=== PATIENT | female | born 1970 | race Two or more races ===

== ENCOUNTER 2017-10-20 06:22 | Day surgery (SDC) | payer OTHER ==
[~2017-10-20] VITALS: Ht 165.1 cm; Wt 59.9 kg
[2017-10-20] VITALS (9 sets, daily range): BP systolic 82–124; BP diastolic 47–88
[2017-10-20] MEDS ORDERED: cefOXitin Sod 1 GM in D5W 55 ML IVPB ONE (07:00)
[2017-10-20] MEDS ORDERED: VITAMIN D1000 UNI1 ORAL (07:15)
[2017-10-20] MEDS ORDERED: LR 1000ml 1,000 ML IVLG SCH (07:40)
--- NOTE | 2017-10-20 07:40 | Anethesia Preoperative Eval ---
Anesthesia Pre-op PMH/ROS General Date of Evaluation: Oct 20, 2017 Anesthesiologist: Kenny ASA Score: ASA 3 Mallampati Score Class I : Soft palate, uvula, fauces, pillars visible Class II: Soft palate, uvula, fauces visible Class III: Soft palate, base of uvula visible Class IV: Only hard plate visible Mallampati Classification: Class II Surgeon: Beata Diagnosis: IUD Surgical Procedure: hysteroscopy, D&C, IUD removal Anesthesia History: none Family History: no anesthesia problems Allergies: Coded Allergies: No Known Allergies (Unverified , 10/20/17) Medications: see eMAR Past Medical History Cardiovascular: Denies: HTN, CAD, [place], valve dz, arrhythmia, other Pulmonary: Denies: asthma, COPD, ARI, other Gastrointestinal/Genitourinary: Denies: GERD, CRI, ESRD, other Neurologic/Psychiatric: Denies: dementia, CVA, depression/anxiety, TIA, other Endocrine: Denies: DM, hypothyroidism, steroids, other HEENT: Denies: cataract (L), cataract (R), glaucoma, [place] (L), [place] (R), other Hematology/Immune: Denies: anemia, DVT, bleeding disorder, other Musculoskeletal/Integumentary: Denies: OA, RA, DJD, DDD, edema, other PSxH Narrative: left oophorectomy, foot sx, lasik Anesthesia Pre-op Phys. Exam Physician Exam Last Vital Signs Date Time Temp Pulse Resp B/P (MAP) Pulse Ox O2 Delivery O2 Flow Rate FiO2 10/20/17 07:15 97.8 64 18 123/78 100 Room Air 97.8 Constitutional: NAD Cardiovascular: RRR Respiratory: CTA Airway Exam Mallampati Score: Class II MO: full ROM: full Teeth: missing, intact, broken Anesthesia Pre-op A/P Labs see chart Urine Test Test 10/20/17 06:35 Urine HCG, Qualitative Negative (NEGATIVE) Risk Assessment & Plan Assessment: ASA I Plan: GA Status Change Before Surgery: No Pre-Antibiotics Drug: Ancef 1g Given Within 1 Hr of Incision: Yes KACIE NAPIER M.D. Oct 20, 2017 07:40
--- NOTE | 2017-10-20 07:41 | 48 Hour Post Anesthesia Eval ---
Post Anesthesia Evaluation Procedure: Hysteroscopy, D&C, IUD removal Date of Evaluation: Oct 20, 2017 Time of Evaluation: 12:10 Blood Pressure Systolic: 111 0: 76 Pulse Rate: 67 Respiratory Rate: 18 Temperature (Fahrenheit): 97.2 O2 Sat by Pulse Oximetry: 99 Airway: patent Nausea: No Vomiting: No Pain Intensity: 0 Hydration Status: adequate Cardiopulmonary Status: at baseline Mental Status/LOC: patient returned to baseline Post-Anesthesia Complications: 0 Follow-up care needed: ready to discharge KACIE NAPIER M.D. Oct 20, 2017 07:41
--- NOTE | 2017-10-20 07:41 | Immediate Post-Op Evaluation ---
Immediate Post-Op Evalulation Immediate Post-Op Evalulation Procedure: Hysteroscopy, D&C, IUD removal Date of Evaluation: Oct 20, 2017 Time of Evaluation: 08:54 IV Fluids: 900 Blood Products: 0 Estimated Blood Loss: min Urinary Output: 0 Blood Pressure Systolic: 82 Blood Pressure Diastolic: 47 Pulse Rate: 54 Respiratory Rate: 17 O2 Sat by Pulse Oximetry: 100 Temperature (Fahrenheit): 97 Pain Score (1-10): 0 Nausea: No Vomiting: No Complications 0 Patient Status: awake, reacts, patent, none Hydration Status: adequate Drug: cefoxitin 1g Given Within 1 Hr of Incision: Yes Time Given: 08:00 KACIE NAPIER M.D. Oct 20, 2017 07:41
[2017-10-20] MEDS ORDERED: Zemuron 50mg/5ml Inj IV ONE (07:42)
[2017-10-20] MEDS ORDERED: Succinylcholine 20mg/ml 10ml vial ONE (07:42)
[2017-10-20] MEDS ORDERED: cefOXitin 1gm Inj ONE ×2 (07:43→07:52)
[2017-10-20] MEDS ORDERED: Labetalol 5mg/ml 20ml vial IV PRN (07:45)
[2017-10-20] MEDS ORDERED: Hydromorphone 0.5mg/0.5ml inj IVP PRN (07:45)
[2017-10-20] MEDS ORDERED: fentaNYL 100 mcg/2 mL IV PRN (07:45)
[2017-10-20] MEDS ORDERED: Ketorolac 30mg Inj IV PRN (07:45)
[2017-10-20] MEDS ORDERED: DiphenhydrAMINE 50mg/ml Inj IVP PRN (07:45)
[2017-10-20] MEDS ORDERED: LORazepam Inj 2mg/ml 1ml IV PRN (07:45)
[2017-10-20] MEDS ORDERED: Midazolam 2mg/2ml Inj IVP PRN (07:45)
[2017-10-20] MEDS ORDERED: Propofol 200mg/20ml IV ONE (07:48)
[2017-10-20] MEDS ORDERED: Lidocaine 1% MPF 10mg/ml 5ml ONE (07:48)
--- NOTE | 2017-10-20 07:52 | Pre-Procedure Note/Attestation ---
Pre-Procedure Note/Attestation Complete Prior to Procedure Planned Procedure: not applicable Procedure Narrative: hysteroscopy, iud removal, fractional curettage Indications for Procedure Pre-Operative Diagnosis: malposition of iud Attestation I attest that I discussed the nature of the procedure; its benefits; risks and complications; and alternatives (and the risks and benefits of such alternatives ), prior to the procedure, with the patient (or the patient's legal professional healthcare representative). I attest that, if there was a reasonable possibility of needing a blood transfusion, the patient (or the patient's legal professional healthcare representative) was given the [facility] standardized written summary, pursuant to the [place] R[place] Blood Safety Act ([place] Health and Safety Code # 1645, as amended). I attest that I re-evaluated the patient just prior to the surgery and that there has been no change in the patient's H&P, except as documented below: VERN SCALES Oct 20, 2017 07:52
[2017-10-20] MEDS ORDERED: NS Irrig 1000ml ONE (08:00)
[2017-10-20] MEDS ORDERED: D5 1/2NS 1,000 ML IV SCH (08:00)
[2017-10-20] MEDS ORDERED: Norco 5mg/325mg tab ORAL PRN (08:00)
[2017-10-20] MEDS ORDERED: LR 1000ml ONE (08:00)
[2017-10-20] MEDS ORDERED: Tylenol #3 tab (300mg/30mg) ORAL PRN (08:00)
[2017-10-20] MEDS ORDERED: Metoclopramide 10mg/2ml Inj IVP PRN (08:00)
[2017-10-20] MEDS ORDERED: Sterile Water Irrig 1000ml IRRIG ONE (08:00)
[2017-10-20] MEDS ORDERED: Dexamethasone 4mg/ml vial ONE (08:28)
[2017-10-20] MEDS ORDERED: Ketorolac 30mg Inj ONE (08:28)
--- NOTE | 2017-10-20 08:43 | Brief Operative Note ---
Immediate Post Operative Note Operative Note Pre-op Diagnosis: malposition of iud Procedure: hysteroscopy, removal of imbedded iud fragment endometrial curettage Post-op Diagnosis: same/ stenotic cervix Surgeon: leticia mtz Anesthesia: general Specimen: yes Complications: none Condition: stable Fluids: crystalloid Estimated Blood Loss: none Drains: none Implant(s) used?: No LETICIA MTZ Oct 20, 2017 08:42
--- NOTE | 2017-10-20 16:30 | Operative Note - Dictated ---
DATE OF OPERATION: 10/20/2017 PREOPERATIVE DIAGNOSIS: Intrauterine device fragment embedded in uterine tissue. POSTOPERATIVE DIAGNOSIS: Intrauterine device fragment embedded in uterine tissue. PROCEDURES: Hysteroscopy, removal of IUD fragment, and curettage. SURGEON: Beba Cota M.D. ANESTHESIOLOGIST: Dr. Sharda Silva. ANESTHESIA: General endotracheal. BLOOD LOSS: None. PROCEDURE IN DETAIL: After ensuring informed consent, the patient was taken to the operating room where general anesthesia was induced. The patient was sterilely prepped and draped. Weighted speculum was placed in the vagina. Cervix was dilated to an 8 Hegar dilator. Hysteroscope was placed inside the uterine cavity. A fragment of plastic IUD arm was imbedded into the tissue of the uterus. Next, using polyp forceps, the fragment was removed. Hysteroscope was replaced inside the uterine cavity. Uterine cavity appeared normal. There was no bleeding and endometrial curettage was performed. At the end of the procedure, excellent hemostasis was removed and all instruments removed from vagina. There was essentially no bleeding and the procedure. All instrument and lap counts were correct x2. Beba Cota M.D. DR: JOCELINE JOB#: [id number] CC:
[2017-10-21 07:38] VITALS: BP 111/76
== END 2017-10-20 12:40 | disposition home or self-care (01) ==
LOC: SUR 06:22
DX: Z30.432 Encounter for removal of intrauterine contraceptive device (principal); Z90.721 Acquired absence of ovaries, unilateral
CPT/HCPCS: 81025; J2250; J2405